=== PATIENT | female | born 2000 ===

== ENCOUNTER → 2022-03-19 | Outpatient (REF) | LOC: M LABSMTC 10:55 | PROVIDERS: ATTEND Family Medicine | DX: Z20.822 Contact with and (suspected) exposure to COVID-19 (principal) ==

== ENCOUNTER → 2022-04-22 | Outpatient (REF) ==
[2022-04-22 17:05] LABS: RSV AMPLIFICATION NEGATIVE (NEGATIVE)
== END ==
LOC: M EMP 12:49
PROVIDERS: ATTEND Family Medicine
DX: Z11.59 Encounter for screening for other viral diseases (principal)